=== PATIENT | female | born 1960 | race Caucasian/White ===

== ENCOUNTER 2023-10-30 22:56 | Emergency (ER) | payer MEDICARE, OTHER, SELFPAY ==
[2023-10-30 23:01] VITALS: PULSE 96; O2SAT 94
[2023-10-30 23:02] VITALS: BP 168/86; PULSE 93; O2SAT 94
[2023-10-30 23:03] VITALS: BP 163/83; PULSE 98; RESP 16; TEMP 38.2; O2SAT 94; BMI 32.3
[2023-10-30 23:15] VITALS: PULSE 89; O2SAT 94
--- NOTE | 2023-10-30 23:22 | ED_ITS ---
HPI - Abdominal Pain General Date Seen: 10/30/23 Chief Complaint: Abdominal Pain Stated Complaint: left side abdominal pain, constipation Time Seen by Provider: 10/30/23 23:01 Source: patient and family Mode of arrival: ambulatory Limitations: no limitations History of Present Illness HPI narrative: Patient is a 63-year-old female who is visiting family from the area, they are from [facility] [place]. She is due to have a PET scan on Thursday at [place], for follow-up of a breast cancer. She has been in remission since 2011. For the last 5 days she has been able have a bowel movement and has felt bloated but in the last day she has developed severe left-sided abdominal pain. It has really become bad in the last 6 hours, any sort of movement walking, even the drive over caused her a lot of pain. She describes it low on her left side. There is no radiation of pain to her back. She denies any nausea vomiting but just has not ate anything today she took 800 mg of ibuprofen twice today. Is noted to have a fever at home of up to 100.5. Not really passing any gas at all, and had 1 little squirt of diarrhea today. Denies any cough cold-like symptoms sore throat shortness of breath chest pain rashes, does have a history in the past of diverticulitis. Past medical history of breast cancer, in remission since 2011. History of cholecystectomy appendectomy, BRANDEE, Hypertension, Medications include potassium chloride, hydrochlorothiazide. Nonsmoker nondrinker. Treatments prior to arrival: NSAIDs Related Data Home Medications ?Medication ?Instructions ?Recorded ?Confirmed aspirin 81 mg capsule 81 mg PO DAILY 10/30/23 10/30/23 furosemide .ROUTE 10/30/23 potassium chloride .ROUTE 10/30/23 Allergies Allergy/AdvReac Type Severity Reaction Status Date / Time hydrocodone AdvReac Verified 10/30/23 23:06 Review of Systems Status of ROS Reports: 10 or more systems reviewed and unremarkable except as noted in History and below PFSH PFSH Social History Smoking Status: Never smoker How often do you have a drink containing alcohol: never AUDIT-C Alcohol total score: 0 Non-prescribed substance use: denies use Exam Narrative: Exam Narrative: On examination in room 5 she is in no apparent distress speaking to me normally. She appears flushed, pupils equal round reactive to light there is no scleral icterus redness or TMs are normal oropharynx is normal her neck is supple full range of motion is elicited, there is no lymphadenopathy. Cranial nerves 3-12 are normal. There is no meningismus. Her chest is good air entry bilaterally with no wheezing crackles noted easy respirations are noted. With no respiratory distress, heart sounds no clicks murmurs or gallops are noted. There is no pain on palpation over her chest. Her abdomen shows severe abdominal pain the left lower quadrant, she has some mild peritoneal signs notable. Bowel sounds are quiet, no organomegaly, no CVA tenderness. She moves all extremities independently well, with no evidence of any neurologic compromise symmetrical strength, no rashes, good hydration status. Const: Vital Signs, click to edit/add: Vital Signs - 24 hr 10/30/23 23:01 10/30/23 23:02 10/30/23 23:03 Temperature 100.8 F H Pulse Rate 96 93 Pulse Rate [Pulse Oximeter] 98 Respiratory Rate 16 Blood Pressure 168/86 H Blood Pressure [Ri ght Upper Arm] 163/83 H Pulse Oximetry 94 94 94 Oxygen Delivery Me thod Room Air Oxygen Flow Rate 10/30/23 23:15 10/30/23 23:30 10/30/23 23:45 Temperature Pulse Rate 89 86 83 Pulse Rate [Pulse Oximeter] Respiratory Rate Blood Pressure Blood Pressure [Ri ght Upper Arm] Pulse Oximetry 94 94 96 Oxygen Delivery Me thod Oxygen Flow Rate 10/31/23 00:00 10/31/23 00:01 10/31/23 00:01 Temperature Pulse Rate 82 81 81 Pulse Rate [Pulse Oximeter] Respiratory Rate Blood Pressure 130/74 130/74 Blood Pressure [Ri ght Upper Arm] Pulse Oximetry 96 96 96 Oxygen Delivery Me thod Oxygen Flow Rate 10/31/23 00:01 10/31/23 00:15 10/31/23 00:21 Temperature Pulse Rate 81 83 81 Pulse Rate [Pulse Oximeter] Respiratory Rate Blood Pressure 130/74 124/71 Blood Pressure [Ri ght Upper Arm] Pulse Oximetry 96 96 96 Oxygen Delivery Me thod Nasal Cannula Oxygen Flow Rate 2 10/31/23 00:30 10/31/23 00:56 10/31/23 01:00 Temperature Pulse Rate 84 91 84 Pulse Rate [Pulse Oximeter] Respiratory Rate Blood Pressure Blood Pressure [Ri ght Upper Arm] Pulse Oximetry 95 85 L 94 Oxygen Delivery Me thod Nasal Cannula Nasal Cannula Nasal Cannula Oxygen Flow Rate 2 2 2 10/31/23 01:21 10/31/23 01:30 10/31/23 01:30 Temperature Pulse Rate 84 Pulse Rate [Pulse Oximeter] Respiratory Rate Blood Pressure 112/65 Blood Pressure [Ri ght Upper Arm] Pulse Oximetry 96 96 96 Oxygen Delivery Me thod Nasal Cannula Oxygen Flow Rate 2 10/31/23 01:41 10/31/23 02:01 10/31/23 02:21 Temperature Pulse Rate 81 80 76 Pulse Rate [Pulse Oximeter] Respiratory Rate 16 Blood Pressure 101/59 L 101/59 L 104/61 Blood Pressure [Ri ght Upper Arm] Pulse Oximetry 95 96 95 Oxygen Delivery Me thod Oxygen Flow Rate Documenting provider has reviewed patient's vital signs: yes Course Course ED Course: CT came back showing uncomplicated diverticulitis I spoke to the patient and the family. At the present time I think as she is better we can let her go home with pain medication and also antibiotics. We will make copies of her labs along with her CTs and she may take this to [place] on Thursday we went over signs and symptoms of worsening, when she should follow-up again in the ER, I do recommend a follow-up colonoscopy if she has not had 1 within 5 years. Vital Signs Vital signs: Initial Vital Signs Pulse Rate 96 10/30/23 23:01 Pulse Oximetry 94 10/30/23 23:01 Vital Signs Pulse Rate 96 10/30/23 23:01 Pulse Oximetry 94 10/30/23 23:01 Temperature 100.8 F H 10/30/23 23:03 Pulse Rate 76 10/31/23 02:21 Respiratory Rate 16 10/31/23 02:21 Blood Pressure 104/61 10/31/23 02:21 Pulse Oximetry 95 10/31/23 02:21 Oxygen Delivery Method Nasal Cannula 10/31/23 01:30 Oxygen Flow Rate 2 10/31/23 01:30 Medications Administered Medications: Discontinued Medications Generic Name Dose Route Start Last Admin Trade Name Freq PRN Reason Stop Dose Admin Hydromorphone HCl 0.5 mg 10/30/23 23:19 10/30/23 23:33 Hydromorphone 0.5 Mg/0.5 Ml Inj IVP 10/30/23 23:20 0.5 mg ONCE ONE Administration Sodium Chloride 1,000 mls @ 1,000 mls/hr 10/30/23 23:30 10/31/23 01:17 0.9 % Sodium Chloride 1000 Ml IV 10/31/23 00:29 Infused .Q1H TRU Infusion Ondansetron HCl 4 mg 10/30/23 23:19 10/30/23 23:32 Ondansetron 2 Mg/Ml Inj IVP 10/30/23 23:20 4 mg ONCE ONE Administration MDM - Abdominal Pain MDM Narrative Medical decision making narrative: During the evaluation of this patient I considered multiple differential diag nosis including life-threatening differentials which are appendicitis, aortic aneurysm, mesenteric ischemia, bowel perforation, ectopic , volvulus and bowel obstruction, other differential diagnosis include but are not limited to inflammatory bowel disease, cholecystitis, pancreatitis, hepatitis, gastritis, GERD, diverticulitis, peptic ulcer disease, pyelonephritis/UTI, renal colic/stone, pelvic inflammatory disease, cervicitis, endometritis, intrauterine , dysfunctional uterine bleeding, ovarian cyst/torsion, spontaneous as well as other etiologies Differential Diagnosis Differential diagnosis: Likely abdominal pain, calculus of kidney, diverticulitis, gastroenteritis, pancreatitis and small bowel obstruction Medical Records Attestation: I reviewed the patient's medical records. Lab Data Attestation: I reviewed the patient's lab results. Labs: Lab Results 10/30/23 10/30/23 10/30/23 Range/Units 23:20 23:30 23:45 WBC 9.63 (4.50-11.00) K/uL RBC 4.19 (4.00-5.20) m/uL Hgb 12.1 (12.0-16.0) gm/dL Hct 35.9 (33.0-51.0) % MCV 86 (80-100) fL MCH 29 (26-34) pg MCHC 34 (32-36) gm/dL RDW Coeff of Callie 12.4 (11.5-15.5) % Plt Count 157 (140-440) K/uL Neut % (Auto) 71.2 (42.0-72.0) % Lymph % (Auto) 16.8 L (20-44) % Real % (Auto) 10.3 (0.0-11.0) % Eos % (Auto) 0.4 (0.0-7.0) % Baso % (Auto) 0.2 (0.0-3.0) % Neut # (Auto) 6.85 (1.7-7.0) K/uL Lymph # (Auto) 1.60 (0.90-2.90) K/uL Real # (Auto) 1.00 H (0.00-0.90) K/UL Eos # (Auto) 0.04 (0.00-0.50) K/uL Baso # (Auto) 0.02 (0.00-0.30) K/uL Abs Immat Gran (auto) 0.11 (0.00-0.30) K/uL Imm/Tot Granulo (auto) 1.1 % Sodium 128 L (135-149) mmol/L Potassium 3.2 L (3.6-5.1) mmol/L Chloride 95 L (96-114) mmol/L Carbon Dioxide 25 (20-32) mmol/L Anion Gap 8 (7-15) mEq/L BUN 8 (7-30) mg/dL Creatinine 0.6 (0.5-1.5) mg/dL Estimated Creat Clear 64.26 Estimated GFR 100 ml/min Glucose 136 H (60-115) mg/dL Lactate 1.2 (0.5-1.9) mmol/L Calcium 8.6 (8.4-10.6) mg/dL Total Bilirubin 1.0 (0.1-1.5) mg/dL Direct Bilirubin 0.4 (0.0-0.5) mg/dL AST 31 (12-35) U/L ALT 20 (4-35) U/L Alkaline Phosphatase 98 (40-150) U/L C-Reactive Protein 5.2 H (0.5-1.0) mg/dL Total Protein 7.4 (6.0-8.3) g/dL Albumin 3.9 (3.3-5.0) g/dL Amylase 73 (18-89) U/L Lipase 89 (23-300) U/L Procalcitonin 0.07 (<0.50) ng/mL Urine Color Yellow (Yellow) Urine Appearance Clear (Clear) Urine pH 6.0 (5.0-8.5) Ur Specific [place] <= 1.005 (1.000-1.030) Urine Protein Negative (Negative) Urine Glucose (UA) Negative (Negative) Urine Ketones Negative (Negative) Urine Blood Negative (Negative) Urine Nitrite Negative (Negative) Urine Bilirubin Negative (Negative) Urine Urobilinogen 0.2 (0.2-1.0) Ur Leukocyte Esterase Negative (Negative) Urine RBC 0-2 (0-2) Urine WBC 0-2 (0-5) Ur Squamous Epith Cells Few (None-Few) Urine Bacteria None (None) POC Creatinine (0.6-1.3) mg/dl 10/31/23 Range/Units 00:10 WBC (4.50-11.00) K/uL RBC (4.00-5.20) m/uL Hgb (12.0-16.0) gm/dL Hct (33.0-51.0) % MCV (80-100) fL MCH (26-34) pg MCHC (32-36) gm/dL RDW Coeff of Callie (11.5-15.5) % Plt Count (140-440) K/uL Neut % (Auto) (42.0-72.0) % Lymph % (Auto) (20-44) % Real % (Auto) (0.0-11.0) % Eos % (Auto) (0.0-7.0) % Baso % (Auto) (0.0-3.0) % Neut # (Auto) (1.7-7.0) K/uL Lymph # (Auto) (0.90-2.90) K/uL Real # (Auto) (0.00-0.90) K/UL Eos # (Auto) (0.00-0.50) K/uL Baso # (Auto) (0.00-0.30) K/uL Abs Immat Gran (auto) (0.00-0.30) K/uL Imm/Tot Granulo (auto) % Sodium (135-149) mmol/L Potassium (3.6-5.1) mmol/L Chloride (96-114) mmol/L Carbon Dioxide (20-32) mmol/L Anion Gap (7-15) mEq/L BUN (7-30) mg/dL Creatinine (0.5-1.5) mg/dL Estimated Creat Clear Estimated GFR ml/min Glucose (60-115) mg/dL Lactate (0.5-1.9) mmol/L Calcium (8.4-10.6) mg/dL Total Bilirubin (0.1-1.5) mg/dL Direct Bilirubin (0.0-0.5) mg/dL AST (12-35) U/L ALT (4-35) U/L Alkaline Phosphatase (40-150) U/L C-Reactive Protein (0.5-1.0) mg/dL Total Protein (6.0-8.3) g/dL Albumin (3.3-5.0) g/dL Amylase (18-89) U/L Lipase (23-300) U/L Procalcitonin (<0.50) ng/mL Urine Color (Yellow) Urine Appearance (Clear) Urine pH (5.0-8.5) Ur Specific [place] (1.000-1.030) Urine Protein (Negative) Urine Glucose (UA) (Negative) Urine Ketones (Negative) Urine Blood (Negative) Urine Nitrite (Negative) Urine Bilirubin (Negative) Urine Urobilinogen (0.2-1.0) Ur Leukocyte Esterase (Negative) Urine RBC (0-2) Urine WBC (0-5) Ur Squamous Epith Cells (None-Few) Urine Bacteria (None) POC Creatinine 0.7 (0.6-1.3) mg/dl Imaging Data CT scan - abdomen: Attestation: I have reviewed the pertinent imaging results. My impression: Moderately severe colitis of the descending colon. No free air Radiologist's impression: [place] [address] Diagnostic Imaging Report Patient: Jojo Rodriguez MR#: [id number] : 1960 Acct:[id number] Loc: ED Service Date: 10/31/[address]: Ordering Physician: Husam Cheung M.D. Date of Service: 10/31/23 Procedure(s): CT abdomen pelvis w con Accession Number(s): [id number] cc: Provider,Not a Local; Husam Cheung M.D.~ For Patients: As a result of the Cures Act, medical imaging exams and procedure reports are released immediately into your electronic medical record. You may view this report before your referring provider. If you have questions, please contact your health care provider. INDICATION: Abdominal pain. TECHNIQUE: CT abdomen and pelvis acquired with 79 cc Isovue 370 IV contrast. COMPARISON: None. FINDINGS: Lower chest: Unremarkable. Liver: Unremarkable. Normal in size and attenuation. No suspicious masses. Gallbladder and bile ducts: Status post cholecystectomy. Spleen: Enlarged spleen. Adrenal glands: Unremarkable. No nodules. Pancreas: Unremarkable. No mass or inflammation. Kidneys: Unremarkable. No suspicious masses, stones, or hydronephrosis. GI tract: Scattered colonic diverticula. Wall thickening with surrounding inflammatory stranding of the descending colon. Fluid-filled colon. No evidence of obstruction. Appendix not visualized. Lymph nodes: No lymphadenopathy. Vasculature: Unremarkable. Omentum/Peritoneum/Abdominal Wall: Trace free fluid in the left paracolic gutter. No focal fluid collection. No free air. Fat containing lower abdominal ventral wall hernia. Pelvis: Status post hysterectomy. Bones: Unremarkable for age. IMPRESSION: 1. Acute uncomplicated diverticulitis of the descending colon. 2. Fluid-filled colon, likely reflecting diarrheal state. 3. Splenomegaly. Please note that all CT scans at this facility use dose modulation, iterative reconstruction, and/or weight-based dosing when appropriate to reduce radiation dose to as low as reasonably achievable. Dictated by Carlos Guido MD @ 10/31/2023 2:25:08 AM (Electronically Signed) Discharge Plan Discharge Clinical Impression: Diverticulitis Patient Disposition: Home w/ Parent or Adult Condition: Improved Instructions: Diverticulitis (DC), Diverticulitis Diet (ED) Additional Instructions: Home rest antibiotics as directed, pain medication as needed do not combine this with driving or alcohol. Follow-up with primary care in the next week, recommend a colonoscopy if nothing is being done for the last 5 years. But this is to be done after you recover from this bout. Worsening pain fevers chills nausea vomiting or inability to tolerate these things that I recommend he get re seen in the emergency room. instymeds given Activity Level: Light activity Prescriptions: No Action aspirin 81 mg capsule 81 mg PO DAILY furosemide .ROUTE potassium chloride [KCl-20] .ROUTE Follow Up/Referrals: Provider,Not a Local [Primary Care Provider] - Stand Alone Forms: [employer] Info Instructions
[2023-10-30 23:30] VITALS: PULSE 86; O2SAT 94
[2023-10-30] MEDS: 0.9 % SODIUM CHLORIDE 1000 ml 1,000 ML IV (23:30)
[2023-10-30] MEDS: ONDANSETRON 2 MG/ML inj 4 MG IVP (23:32)
[2023-10-30] MEDS: HYDROmorphone 0.5 mg/0.5 ml inj IVP (23:33)
[2023-10-30 23:45] VITALS: PULSE 83; O2SAT 96
[2023-10-30 23:45] LABS: Lactate* 1.2 mmol/L (0.5-1.9)
[2023-10-30 23:52] LABS: Basophils Absolute Auto 0.02 K/uL (0.00-0.30); Basophils Percent Auto 0.2 % (0.0-3.0); Eosinophils Absolute Auto 0.04 K/uL (0.00-0.50); Eosinophils Percent Auto 0.4 % (0.0-7.0); Hematocrit 35.9 % (33.0-51.0); Hemoglobin* 12.1 gm/dL (12.0-16.0); Immature Granulocytes Abs Auto 0.11 K/uL (0.00-0.30); Immature Granulocytes Pct Auto 1.1 %; Lymphocytes Percent Auto 16.8 % (20-44); Mean Corpuscular HGB Conc 34 gm/dL (32-36); Mean Corpuscular Hemoglobin 29 pg (26-34); Mean Corpuscular Volume 86 fL (80-100); Monocytes Percent Auto 10.3 % (0.0-11.0); Neutrophils Absolute Auto 6.85 K/uL (1.7-7.0); Neutrophils Percent Auto 71.2 % (42.0-72.0); Platelet Count* 157 K/uL (140-440); RDW Coefficient of Variation % 12.4 % (11.5-15.5); Red Blood Count 4.19 m/uL (4.00-5.20); White Blood Count* 9.63 K/uL (4.50-11.00)
[2023-10-30 23:54] LABS: Slide Review Reflex No
[2023-10-31] VITALS (12 sets, daily range): BP systolic 101–130; BP diastolic 59–74; PULSE 76–91; RESP 16; O2SAT 85–96
--- NOTE | 2023-10-31 00:15 | CRLHL7_ITS ---
For Patients: As a result of the Century Cures Act, medical imaging exams and procedure reports are released immediately into your electronic medical record. You may view this report before your referring provider. If you have questions, please contact your health care provider. INDICATION: Abdominal pain. TECHNIQUE: CT abdomen and pelvis acquired with 79 cc Isovue 370 IV contrast. COMPARISON: None. FINDINGS: Lower chest: Unremarkable. Liver: Unremarkable. Normal in size and attenuation. No suspicious masses. Gallbladder and bile ducts: Status post cholecystectomy. Spleen: Enlarged spleen. Adrenal glands: Unremarkable. No nodules. Pancreas: Unremarkable. No mass or inflammation. Kidneys: Unremarkable. No suspicious masses, stones, or hydronephrosis. GI tract: Scattered colonic diverticula. Wall thickening with surrounding inflammatory stranding of the descending colon. Fluid-filled colon. No evidence of obstruction. Appendix not visualized. Lymph nodes: No lymphadenopathy. Vasculature: Unremarkable. Omentum/Peritoneum/Abdominal Wall: Trace free fluid in the left paracolic gutter. No focal fluid collection. No free air. Fat containing lower abdominal ventral wall hernia. Pelvis: Status post hysterectomy. Bones: Unremarkable for age. IMPRESSION: 1. Acute uncomplicated diverticulitis of the descending colon. 2. Fluid-filled colon, likely reflecting diarrheal state. 3. Splenomegaly. Please note that all CT scans at this facility use dose modulation, iterative reconstruction, and/or weight-based dosing when appropriate to reduce radiation dose to as low as reasonably achievable. Dictated by Carlos Guido MD @ 10/31/2023 2:25:08 AM (Electronically Signed)
[2023-10-31 00:16] LABS: Creatinine, Point-of-Care* 0.7 mg/dl (0.6-1.3)
[2023-10-31 00:18] LABS: Albumin* 3.9 g/dL (3.3-5.0)
[2023-10-31 00:19] LABS: Chloride* 95 mmol/L (96-114); Potassium* 3.2 mmol/L (3.6-5.1); Sodium* 128 mmol/L (135-149)
[2023-10-31 00:21] LABS: Alkaline Phosphatase* 98 U/L (40-150); Aspartate Amino Transferase* 31 U/L (12-35); Bilirubin Direct* 0.4 mg/dL (0.0-0.5); Lipase* 89 U/L (23-300); Total Protein* 7.4 g/dL (6.0-8.3)
[2023-10-31 00:22] LABS: Alanine Aminotransferase* 20 U/L (4-35); Amylase* 73 U/L (18-89); Creatinine* 0.6 mg/dL (0.5-1.5); Est. Creatinine Clearance* 64.26; Estimated Glomerular Filt Rate 100 ml/min
[2023-10-31 00:23] LABS: Anion Gap 8 mEq/L (7-15); Blood Urea Nitrogen* 8 mg/dL (7-30); Calcium* 8.6 mg/dL (8.4-10.6); Carbon Dioxide* 25 mmol/L (20-32); Glucose* 136 mg/dL (60-115)
[2023-10-31 00:24] LABS: C Reactive Protein* 5.2 mg/dL (0.5-1.0)
--- OUTSIDE RECORDS SUMMARY | 2023-10-31 00:24 | XMS_ITS | Referral Summary ---
Author Organization [facility] Address [address] [place] [address] Care Team Providers Care Leasing Sales Consultant Name Role Phone Unavailable Primary Care Provider Unavailabl e Source Comments Patient records contain information from all sites at [facility]. For routine questions regarding patient records, call [phone] during business hours, M-F 8:00 AM - 5:00 PM Central Time. Record requests for emergency care only can be directed to [phone] at any time.[facility] Encounters Date Type Department Care Team Description 10/29/2023 11:00 AM CDT Clinical Communication Virtual Review in [place], [place] 200 [place] [address] Pre-visit Intake from Last 3 Months Allergies Active Allergy Reactions Criticality Noted Date Comments Hydrocodone Other (see comments) 05/29/2019 Hallucinations, vivid dreams Medications Medication Sig Dispensed Refills Start Date End Date Status acetaminophen (TYLENOL) 500 mg tablet Take 500 mg by mouth daily as needed for pain. Active aspirin [address] tablet Take 81 mg by mouth daily. Active cholecalciferol (VITAMIN D3) 1,000 Unit tablet Take 1,000 Units by mouth daily. Active DOCUSATE SODIUM ORAL Take 2 capsules by mouth 2 (two) times a day as needed (constipation). Active fluticasone (FLONASE) 50 mcg/actuation nasal spray Administer 2 sprays into each nostril daily as needed. 08/01/2015 Active ibuprofen (ADVIL,MOTRIN) 200 mg tablet Take 200 mg by mouth as needed for pain. Active multivit with calcium,iron,min (MULTIPLE VITAMIN, WOMENS ORAL) Take 1 tablet by mouth daily. Active SYNTHROID 50 mcg tablet Take 50 mcg by mouth every morning before breakfast. 01/06/2019 Active ascorbic acid, vitamin C, (VITAMIN C) 1,000 mg tablet Take 1,000 mg by mouth daily. Active omeprazole (PriLOSEC) [address] capsule Take 40 mg by mouth every morning before breakfast. 02/21/2019 Active potassium chloride (KLOR-CON SPRINKLE) 10 mEq ER sprinkle capsule Take 20 mEq by mouth daily with breakfast. 02/21/2019 Active hydroCHLOROthiazide (HYDRODIURIL) 25 mg tablet Take 1 tablet by mouth daily. 05/14/2021 Active polyethylene glycol (MIRALAX) 17 gram/dose oral powder Take 17 g by mouth. Activ e lisinopriL (PRINIVIL,ZESTRIL) 5 mg tablet Take 1 tablet by mouth daily. 11/24/2022 11/24/2023 Active polyvinyl alcohol (Artificial Tears, polyvin alc,) 1.4 % ophthalmic solution Administer 1 drop into both eyes as needed for dry eyes. Active Active Problems Problem Noted Date Diagnosed Date Acidosis Metabolic Anion Gap 04/04/2019 Overview: Increased since September 2018. Associated with mild hypernatremia (150), hypokalemia (3.5). No kidney dysfunction, no changes in urination. Only associated with fatigue. Last Assessment & Plan: Denies any glycol consumption, no chronic Tylenol use, no recent infections, no methanol use, baby aspirin only, mild elevation in creatinine versus prior, very unlikely ketoacidosis given only slightly elevated fasting glucose level. Checking urinalysis and asking for Nephrology eConsult as to possible causes and further workup. Fatigue 04/04/2019 Overview: Associated with the loss of her mother, the loss of both of her in-laws, the acquisition of her in-laws home including multiple renovations and moving for the 1st time in over 40 years. Understandably experiencing some depression-like symptoms that may also be contributing to the fatigue. Recent TSH relatively normal and is on replacement. Last Assessment & Plan: Likely multifactorial. She understands the availability of counseling and we will be working up her anion gap metabolic acidosis in conjunction with Nephrology. Difficult Intubation Personal History 03/11/2018 Obstructive Sleep Apnea Adult 09/17/2017 Secondary Malignant Neoplasm Bone 11/14/2011 Secondary Malignant Neoplasm Lymph Node 11/13/19 12 Malignant Neoplasm Of Breast Female Right 2008 Cancer Staging:Pathologic stage from 05/05/2008:Stage Unknown(T1c, N0, MX) - Signed by Jojo Lakhani R.N. on 08/23/2017 Pathologic stage from 10/28/2011:Stage IV(TX, M1) - Signed by Jojo Lakhani R.N. on 08/23/2017 Overview: Metastatic breast cancer, ER negative Her2 positive DCIS with recurrence currently on TDM-1. Last Assessment & Plan: PET scan shows improvement. No current concerns with very mild liver chemistry elevations. Continue TDM-1. Follow-up return 6 months. Resolved Problems Problem Noted Date Diagnosed Date Resolved Date Metastatic Right Breast Cancer Female 11/13/2011 09/17/2017 Social History Tobacco Use Types Packs/Day Years Used Date Smoking Tobacco: Never Smokeless Tobacco: Never Alcohol Use Standard Drinks/Week Comments No 0 (1 standard drink = 0.6 oz pur e alcohol) Nutrition Answer Date Recorded Nutrition: EVOO Fat Source 13 11/28 Nutrition: Servings of Fruits/Vegetables per Day Not on file 11/29/2019 Dental Answer Date Recorded Dental: Regular Dentist Unknown 07/06/19 21 Sex and Gender Information Value Date Recorded Sex Assigned at Female 03/10/2018 3:34 PM MEDIA BUYER Gender Identity Female 03/10/2018 3:34 PM MEDIA BUYER Sexual Orientation Straight 03/10/2018 3: 34 PM MEDIA BUYER Last Filed Vital Signs Vital Sign Reading Time Taken Comments Blood Pressure 130/80 12/22/2022 3:11 PM CDT Pulse 80 12/22/2022 3:11 PM CDT Temperature 36.7 ??C (98.1 ??F) 12/22/2022 3:11 PM CD T Respiratory Rate 16 02/10/2022 3:43 PM CDT Oxygen Saturation 94% 12/22/2022 3:11 PM CDT Inhaled Oxygen Concentration - - Weight 74.3 kg (163 lb 12.8 oz) 12/22/2022 3:11 PM CDT Height 152.3 cm (4' 11.96) 12/22/2022 3:11 PM C DT Body Mass Index 32.03 12/22/2022 3:11 PM CDT Plan of Treatment Upcoming Encounters Date Type Department Care Team (Late st Contact Info) Description 11/02/2023 8:00 AM CDT Lab Department of Infusion Therapy in [place], [place] [address] [place] [phone] Garcia Parra M.D. [address] [place] [phone] 11/02/2023 9:45 AM CDT Appointment Department of Radiology, [facility], in [place], [place] [address] [place] [phone] Garcia Parra M.D. [address] [place] [phone] 11/02/2023 3:20 PM CDT Office Visit Department of Oncology in [address] [phone] Garcia Parra M.D. [address] [place] [phone] Medical Devices Implanted Type Area Sheetfed Press Operator Device Identifier Shelf Expiration Date Model / Serial / Lot Conversions - Default Historical Implant Device-12/02/2011 Implanted:2011 (Quantity not on file) Implanted Port Single Lumen Chest Description:Device Status Te xt - IVAD/Port. left chest. Cath Powerport Mri W 8.0fr - [id number] [id number] Implanted:Qty: 1 on 12/02/2011 Implanted Port Single Lumen Left: Chest [employer] Description:Device Manufactu [facility] - [employer] Patient Care Division. Device Status Text - [id number]/[id number]. [facility] Data - ][id number]. Procedure: Left internal jugular PowerPort placement. Procedures Procedure Name Priority Date/Time Associated Diagnosis Comments EXTI SODIUM, S/P Routine 07/15/2023 8:17 AM CDT EXTI THYROID-STIMULATING HORMONE-SENSITIVE (S-TSH), S Routine 07/15/2023 8:17 AM CDT EXTI POTASSIUM, S/P Routine 07/15/2023 8 :17 AM CDT COMPREHENSIVE METABOLIC PANEL, S/P Routine 04/24/2023 11:21 AM MEDIA BUYER Malignant Neoplasm Of Breast Female Right (HCC) Secondary Malignant Neoplasm Bone (HCC) Secondary Malignant Neoplasm Lymph Node (HCC) BI BREAST DIAGNOSTIC BILATERAL WITH TOMOSYNTHESIS RAD - Routine (most inpatients and all outpatients) 05/02/2022 3:55 PM MEDIA BUYER COLONOSCOPY Routine 11/07/2014 7:25 AM CDT from Last 3 Months or Most Recently Relevant to Health Maintenance Results * (ABNORMAL) Comprehensive Metabolic Panel (04/24/2023 11:21 AM MEDIA BUYER) Potassium, S 3.5(L) 3.6 - 5.2 mmol/L 04/24/2023 1:16 PM MEDIA BUYER DTL Sodium, S 134(L) 135 - 145 mmol/L 04/24/2023 1:16 PM MEDIA BUYER DTL Chloride, S 97(L) 98 - 107 mmol/L 04/24/2023 1:16 PM MEDIA BUYER DTL Bicarbonate, S 22 22 - 29 mmol/L 04/24/2023 1:16 PM MEDIA BUYER DTL Anion Gap 15 7 - 15 04/24/2023 1:16 PM MEDIA BUYER DTL BUN (Blood Urea Nitrogen), S 14 6 - 21 mg/dL 04/24/2023 1:16 PM MEDIA BUYER DTL Creatinine 0.61 0.59 - 1.04 mg/dL 04/24/2023 1:16 PM MEDIA BUYER DTL Estimated GFR (eGFR) >90 >=60 mL/min/BS A 04/24/2023 1:16 PM MEDIA BUYER DTL Comment: Estimated GFR calculated using the 2020 CKD_EPI creatinine equation. Calcium, Total, S 9.2 8.8 - 10.2 mg/dL 04/24/2023 1:16 PM MEDIA BUYER DTL Glucose, S 94 70 - 140 mg/dL 04/24/2023 1:16 PM MEDIA BUYER DTL Protein, Total, S 7.3 6.3 - 7.9 g/dL 04/24/2023 1:16 PM MEDIA BUYER DTL Albumin, S 4.3 3.5 - 5.0 g/dL 04/24/2023 1:16 PM MEDIA BUYER DTL Aspartate Aminotransferase (AST), S 48(H) 8 - 43 U/L 04/24/2023 1:16 PM MEDIA BUYER DTL Alkaline Phosphatase, S 114(H) 35 - 104 U/L 04/24/2023 1:16 PM MEDIA BUYER DTL Alanine Aminotransferase (ALT), S 32 7 - 45 U/L 04/24/2023 1:16 PM MEDIA BUYER DTL Bilirubin, Total, S 0.5 0.0 - 1.2 mg/dL 04/24/2023 1:16 PM MEDIA BUYER DTL Blood (Blood, Venous) 04/24/2023 11:21 AM MEDIA BUYER 04/24/2023 11:51 AM MEDIA BUYER Garcia Parra M.D. LAB BLOOD ADD-ON [facility] 200 [place] [address], [facility] DTL [facility] 200 [place] [address] * Colonoscopy (11/07/2014 7:25 AM CDT) 11/07/2014 7:25 AM CDT Dwayne Hoffmann M.D. GI PROCEDURE [facility] [address] [id number] from Last 3 Months or Most Recently Relevant to Health Maintenance
--- OUTSIDE RECORDS SUMMARY | 2023-10-31 00:24 | XMS_ITS ---
Author Organization [facility] Address [address] [place] [address] Care Team Providers Care Vector Control Specialist Name Role Phone Unavailable Unavailable Unavailable Surgery Details Not on file Complications Check Surgery Details section. Procedure Estimated Blood Loss Check Surgery Details section. Procedure Findings Check Surgery Details section. Procedure Specimens Taken Check Surgery Details section.
--- OUTSIDE RECORDS SUMMARY | 2023-10-31 00:24 | XMS_ITS ---
Author Organization [facility] Address [address] [place] [address] Care Team Providers Care Locomotive Repairer Diesel Name Role Phone Unavailable Primary Care Provider Unavailabl e Active Problems Problem Noted Date Diagnosed Date [...] elevations. Continue TDM-1. Follow-up return 6 months. Current Oncology Plans VASCULAR ACCESS PATENCY - IMPLANTED VASCULAR ACCESS DEVICE (IVAD) VENOUS NON-VALVED* Plan Start Date:02/10/2022 Linked Problems Malignant Neoplasm Of Breast Female Right (HCC) Treatment Medications No medications scheduled. Past Plans Flushes/Hydration Plan Name Start Date Discontinue Date Treatment Medications Discontinue Reason Plan Provider VASCULAR ACCESS PATENCY - IMPLANTED VASCULAR ACCESS DEVICE (IVAD) VENOUS NON-VALVED 12/31/2020 12/25/2021 No medications scheduled. Therapy Complete Garcia Parra M.D. VASCULAR ACCESS PATENCY - IMPLANTED VASCULAR ACCESS DEVICE (IVAD) VENOUS NON-VALVED 10/03/2019 09/05/2020 No medications scheduled. Therapy Complete - VASCULAR ACCESS PATENCY - IMPLANTED VASCULAR ACCESS DEVICE (IVAD) VENOUS NON-VALVED 09/13/2018 08/25/2019 No medications scheduled. Therapy Complete Torie Hou APRN, C.N.P., M.S.N. Infusion Therapy 1 Plan Name Start Date Discontinue Date Treatment Medications Discontinue Reason Plan Provider ELECTROLYTE ADMINISTRATION AT INFUSION CENTER 09/17/2017 03/19/2019 No medications scheduled. Upgrade 2019 Therapy Plan Conversion Torie Hou APRN C.N.P., M.S.N. Radiation Treatments * No radiation treatments are documented for this patient in [facility]. Treatments may have been administered in another system. Resolved Problems Problem Noted Date Diagnosed Date Resolved Date Metastatic Right Breast Cancer Female 11/13/2011 09/17/2017
--- OUTSIDE RECORDS SUMMARY | 2023-10-31 00:24 | XMS_ITS | Encounter Summary ---
Author Organization [facility] Address [address] [place] [address] Care Team Providers Care Religious Educator Name Role Phone Unavailable Primary Care Provider Unavailabl e Reason for Visit * Reason Onset Date Comments Pre-visit Intake 10/29/2023 Encounter Details Date Type Department Care Team (Latest Contact Info) Description 10/29/2023 11:00 AM CDT Clinical Communication Virtual Review in [place], [place] [address] [place] [phone] Pre-visit Intake Social History Tobacco Use Types Packs/Day Years [...] Sex Assigned at Female 03/10/2018 3:34 PM SMOKING PIPE LINER Gender Identity Female 03/10/2018 3:34 PM SMOKING PIPE LINER Sexual Orientation Straight 03/10/2018 3: 34 PM SMOKING PIPE LINER documented as of this encounter Plan of Treatment Upcoming Encounters Date Type Department Care Team ( st Contact Info) Description 11/02/2023 8:00 AM CDT Lab Department of Infusion Therapy in [place], [place] [address] [place] [phone] Garcia Parra M.D. [address] [place] [phone] 11/02/2023 9:45 AM CDT Appointment Department of Radiology, [facility], in [place], [place] [address] [place] [phone] Garcia Parra M.D. [address] [place] [phone] 11/02/2023 3:20 PM CDT Office Visit Department of Oncology in [place], [place] [address] [place] [phone] Garcia Parra M.D. [address] [place] [phone] documented as of this encounter Visit Diagnoses Not on filedocumented in this encounter
--- OUTSIDE RECORDS SUMMARY | 2023-10-31 00:24 | XMS_ITS | Clinical Summary ---
Author Organization [facility] Address [address] [place] [address] Care Team Providers Care Safety Engineer Name Role Phone Unavailable Primary Care Provider Unavailabl e Source Comments Patient records contain information from all sites at [facility]. For routine questions regarding patient records, call [phone] during business hours, M-F 8:00 AM - 5:00 PM Central Time. Record requests for emergency care only can be directed to [phone] at any time.[facility] Allergies Active Allergy Reactions Criticality Noted Date [...] Metastatic Right Breast Cancer Female 11/13/2011 09/17/2017 Encounters Date Type Department Care Team Description 10/29/2023 11:00 AM CDT Clinical Communication Virtual Review in [address] [phone] Pre-visit Intake from Last 3 Months Social History Tobacco Use Types Packs/Day Years [...] Sex Assigned at Female 03/10/2018 3:34 PM AGED OR DISABLED CARE WORKER Gender Identity Female 03/10/2018 3:34 PM AGED OR DISABLED CARE WORKER Sexual Orientation Straight 03/10/2018 3: 34 PM AGED OR DISABLED CARE WORKER Last Filed Vital Signs Vital Sign Reading [...] CDT Lab Department of Infusion Therapy in [place], [place] [address] [place] [phone] Garcia Parra M.D. [address] [place] [phone] 11/02/2023 9:45 AM CDT Appointment Department of Radiology, [facility], in [place], [place] [address] [place] [phone] Garcia Parra M.D. [address] [place] [phone] 11/02/2023 3:20 PM CDT Office Visit Department of Oncology in [place], [place] [address] [place] [phone] Garcia Parra M.D. [address] [place] [phone] Health Maintenance Due Date Last Done Comments Bone Density Scan (Osteoporosis Screen) 1958 CT Colonography 1960 Cologuard 1958 FIT 1960 HIV Screening 1960 Hepatitis C Screening 1958 COVID-19 Vaccine (#1) 10/21/1963 Zoster Vaccines (1 of 2) 1977 Pneumococcal vaccine (65+ years) (3 of 3 - PPSV23 or PCV20) 02/06/2021 02/21/2019, 02/07/2016 Mammogram 05/02/2023 05/02/2022, 04/05, 08/30/2012, Additional history exists Depression Screening (Annual PHQ-2) 05/04/2023 Fall Risk Screen (Annual) 10/21/2023 Creatinine Level (Kidney Function Test) 04/24/2024 04/24/2023, 02/16/2023, 12/22/2022, Additional history exists Potassium Level 07/14/2024 07/15/2023, 04/04, 02/16/2023, Additional history exists Sodium Level 07/14/2024 07/15/2023, 04/04, 02/16/2023, Additional history exists Thyroid Stimulating Hormone (TSH) test for thyroid function 07/14/2024 07/15/2023, 11/16/2022, 11/17/2021, Additional history exists Colonoscopy 11/07/2024 11/07/2014, 05/2009 (Performed elsewhere) Colorectal Cancer Screening 11/07/2024 Fasting Glucose for Diabetes Screening 04/24/2026 04/24/2023, 12/22/2022, 05/09/2022, Additional history exists DTaP,Tdap,and Td Vaccines (2 - Td or Tdap) 03/04/2027 03/04/2017 Influenza Vaccine Completed 02/16/2023, , 04/04/2021, Additional history exists HPV Vaccines Aged Out No longer eligi ble based on patient's age to complete this topic Medical Devices Implanted Type Area Dietetics Director Device Identifier Shelf Expiration Date Model / Serial / Lot Conversions - Default Historical Implant Device-12/02/2011 Implanted:2011 (Quantity not on file) Implanted Port Single Lumen Chest Description:Device Status Te xt - IVAD/Port. left chest. Cath Powerport Mri W 8.0fr - [id number] [id number] Implanted:Qty: 1 on 12/02/2011 Implanted Port Single Lumen Left: Chest [employer] Description:Device Manufactu [facility] - [employer] Patient Care Division. Device Status Text - [id number]/[id number]. [facility] Data - ][id number]. Procedure: Left internal jugular PowerPort placement. Procedures Procedure Name Priority Date/Time Associated Diagnosis Comments EXTI SODIUM, S/P Routine 07/15/2023 8:17 AM CDT EXTI THYROID-STIMULATING HORMONE-SENSITIVE (S-TSH), S Routine 07/15/2023 8:17 AM CDT EXTI POTASSIUM, S/P Routine 07/15/2023 8 :17 AM CDT COMPREHENSIVE METABOLIC PANEL, S/P Routine 04/24/2023 11:21 AM AGED OR DISABLED CARE WORKER Malignant Neoplasm Of Breast Female Right (HCC) Secondary Malignant Neoplasm Bone (HCC) Secondary Malignant Neoplasm Lymph Node (HCC) BI BREAST DIAGNOSTIC BILATERAL WITH TOMOSYNTHESIS RAD - Routine (most inpatients and all outpatients) 05/02/2022 3:55 PM AGED OR DISABLED CARE WORKER COLONOSCOPY Routine 11/07/2014 7:25 AM CDT from Last 3 Months or Most Recently Relevant to Health Maintenance Results * (ABNORMAL) Comprehensive Metabolic Panel (04/24/2023 11:21 AM AGED OR DISABLED CARE WORKER) Potassium, S 3.5(L) 3.6 - 5.2 mmol/L 04/24/2023 1:16 PM AGED OR DISABLED CARE WORKER DTL Sodium, S 134(L) 135 - 145 mmol/L 04/24/2023 1:16 PM AGED OR DISABLED CARE WORKER DTL Chloride, S 97(L) 98 - 107 mmol/L 04/24/2023 1:16 PM AGED OR DISABLED CARE WORKER DTL Bicarbonate, S 22 22 - 29 mmol/L 04/24/2023 1:16 PM AGED OR DISABLED CARE WORKER DTL Anion Gap 15 7 - 15 04/24/2023 1:16 PM AGED OR DISABLED CARE WORKER DTL BUN (Blood Urea Nitrogen), S 14 6 - 21 mg/dL 04/24/2023 1:16 PM AGED OR DISABLED CARE WORKER DTL Creatinine 0.61 0.59 - 1.04 mg/dL 04/24/2023 1:16 PM AGED OR DISABLED CARE WORKER DTL Estimated GFR (eGFR) >90 >=60 mL/min/BS A 04/24/2023 1:16 PM AGED OR DISABLED CARE WORKER DTL Comment: Estimated GFR calculated using the 2020 CKD_EPI creatinine equation. Calcium, Total, S 9.2 8.8 - 10.2 mg/dL 04/24/2023 1:16 PM AGED OR DISABLED CARE WORKER DTL Glucose, S 94 70 - 140 mg/dL 04/24/2023 1:16 PM AGED OR DISABLED CARE WORKER DTL Protein, Total, S 7.3 6.3 - 7.9 g/dL 04/24/2023 1:16 PM AGED OR DISABLED CARE WORKER DTL Albumin, S 4.3 3.5 - 5.0 g/dL 04/24/2023 1:16 PM AGED OR DISABLED CARE WORKER DTL Aspartate Aminotransferase (AST), S 48(H) 8 - 43 U/L 04/24/2023 1:16 PM AGED OR DISABLED CARE WORKER DTL Alkaline Phosphatase, S 114(H) 35 - 104 U/L 04/24/2023 1:16 PM AGED OR DISABLED CARE WORKER DTL Alanine Aminotransferase (ALT), S 32 7 - 45 U/L 04/24/2023 1:16 PM AGED OR DISABLED CARE WORKER DTL Bilirubin, Total, S 0.5 0.0 - 1.2 mg/dL 04/24/2023 1:16 PM AGED OR DISABLED CARE WORKER DTL Blood (Blood, Venous) 04/24/2023 11:21 AM AGED OR DISABLED CARE WORKER 04/24/2023 11:51 AM AGED OR DISABLED CARE WORKER Garcia Parra M.D. LAB BLOOD ADD-ON [address] [place] [address] * Colonoscopy (11/07/2014 7:25 AM CDT) 11/07/2014 7:25 AM CDT Dwayne Hoffmann M.D. GI PROCEDURE [facility] [address] [place] [address], [facility] from Last 3 Months or Most Recently Relevant to Health Maintenance
[2023-10-31 00:38] LABS: Procalcitonin* 0.07 ng/mL (<0.50)
[2023-10-31 00:53] LABS: Appearance Urine Clear (Clear); Bilirubin Urine Negative (Negative); Blood Urine Negative (Negative); Color Urine Yellow (Yellow); Glucose Urine Negative (Negative); Ketones Urine Negative (Negative); Leukocyte Esterase Urine Negative (Negative); Nitrite Urine Negative (Negative); Protein Urine Negative (Negative); Specific Gravity Urine <= 1.005 (1.000-1.030); Urobilinogen Urine 0.2 (0.2-1.0)
[2023-10-31 00:58] LABS: RBC Urine 0-2 (0-2); Squamous Epithelial Cell Urine Few (None-Few); WBC Urine 0-2 (0-5)
[2023-10-31] MEDS: HEPARIN 500 UNIT/5 ML SYRINGE IVF (02:40)
== END 2023-10-31 02:50 | disposition home or self-care (01) ==
PROVIDERS: Emergency Provider Family Medicine
DX: K57.32 Diverticulitis of large intestine without perforation or abscess without bleeding (principal); Z13.228 Encounter for screening for other metabolic disorders
CPT/HCPCS: 36415; 74177; 80048; 80076; 81001; 82150; 82565; 83605; 83690; 84145; 85025; 86140; 87040; 94761; 96374; 96375; 99284; J1170; J1642; J2405; J7030; Q9967